=== PATIENT | female | born 1995 | race African-American/Black ===

== ENCOUNTER 2017-06-03 16:15 | Emergency (ER) | payer OTHER ==
[~2017-06-03] VITALS: Ht 157.5 cm; Wt 50.0 kg
[2017-06-03 16:28] VITALS: BP 138/82; PULSE 80; RESP 16; TEMP 98.6; O2SAT 100
[2017-06-03] MEDS ORDERED: ACETAMINOPHEN 325 MG TAB PO ONE (17:00)
[2017-06-03] MEDS ORDERED: IBUPROFEN 600 MG TAB PO ONE (17:00)
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
[2017-06-03] MEDS ORDERED: IBUP-232 PO (17:28)
[2017-06-03] MEDS ORDERED: TRAM50TA PO ×2 (17:28→17:31)
== END 2017-06-03 18:20 | disposition home or self-care (01) ==
LOC: NEPK 16:15
DX: S20.212A Contusion of left front wall of thorax, initial encounter (principal); V43.62XA Car passenger injured in collision with other type car in traffic accident, initial encounter
CPT/HCPCS: 71101; 99283